=== PATIENT | female | born 1985 | race African-American/Black ===

== ENCOUNTER 2016-06-08 11:55 | Emergency (ER) | payer MEDICAID ==
[~2016-06-08] VITALS: Ht 167.6 cm; Wt 81.6 kg
--- NOTE | 2016-06-08 12:43 | Emergency Room Report ---
History of Present Illness General Chief Complaint: General Complaint Source: Patient Present Illness HPI 31-year-old female presents emergency department complaining of 9/10 in severity sharp right-sided adnexal pain intermittently since last night. Patient is 30 weeks she has with previous normal vaginal deliveries without complications. Pt. also reports subjective decreased kick count. Denies cramping or contractions She denies vaginal bleeding or discharge patient reports mild nausea patient states that she had appendectomy several years ago. Pt. states initially pain was in the right adnexal area, and it came and went approximately 4 times. pt. states after that is when she noted the decreased movement from the baby. Denies fevers or chills. Denies hematuria, or dysuria . Denies CP, Palpitations, LOC, AMS, dizziness, Changes in Vision, Sensation, paresthesias, or a sudden severe headache. Allergies: Coded Allergies: No Known Allergies (Unverified , 06/08/16) Patient History Past Medical History: see triage record Past Surgical History: unable to obtain Pertinent Family History: none Now: Yes Immunizations: UTD Reviewed Nursing Documentation: PMH: Agreed, PSxH: Agreed Nursing Documentation-PMH Past Medical History: No Stated History Review of Systems All Other Systems: negative except mentioned in HPI Physical Exam Vital Signs Date Time Temp Pulse Resp B/P Pulse Ox O2 Delivery O2 Flow Rate FiO2 06/08/16 12:10 98.1 78 16 120/ 98 Room Air Sp02 EP Interpretation: reviewed, normal General Appearance: no apparent distress, alert, GCS 15, non-toxic Head: normocephalic, atraumatic Eyes: bilateral eye PERRL, bilateral eye normal inspection ENT: hearing grossly normal, normal pharynx, no angioedema, normal voice Neck: full range of motion, supple/symm/no masses Respiratory: chest non-tender, lungs clear, normal breath sounds, speaking full sentences Cardiovascular #1: regular rate, rhythm, no edema Gastrointestinal: normal bowel sounds, non tender, no guarding, no rebound, distended - distended- pt. 30wks , other - pt. currently does not have pain. Rectal: deferred Genitourinary: normal inspection, no CVA tenderness, adnexa normal Musculoskeletal: back normal, gait/station normal, normal range of motion, non- tender, no calf tenderness Neurologic: alert, oriented x3, responsive, motor strength/tone normal, sensory intact, speech normal Psychiatric: judgement/insight normal, memory normal, mood/affect normal, no suicidal/homicidal ideation Skin: normal color, no rash, warm/dry, well hydrated Lymphatic: no adenopathy Medical Decision Making PA Attestation Dr. Darnell is my supervising Physician whom patient management has been discussed with. Diagnostic Impression: Primary Impression: Abdominal pain during in third trimester Additional Impression: Adnexal pain ER Course 31-year-old female presents emergency department complaining of 9/10 in severity sharp right-sided adnexal pain intermittently since last night. Patient is 30 weeks she has with previous normal vaginal deliveries without complications. Pt. also reports subjective decreased kick count. denies cramping or contractions. She denies vaginal bleeding or discharge patient reports mild nausea patient states that she had appendectomy several years ago. Denies fevers or chills. Denies hematuria, or dysuria . Ddx considered but are not limited to: Fibroid, ovarian cyst, appendicitis, demise, Vital signs: are WNL, pt. is afebrile H&PE are most consistent with: Adnexal pain during with perceived decreased movement. - d/w pt that stress testing is indicated. ORDERS: -CBC: unremarkable -CMP: unremarkable -Lipase: WNL - UA : pending- pt was unable to provide urine. -Urine hcg- Positive -serum Hcg Quant: 9357 - Blood/RH type and screen- see attached labs ( O POSITIVE) -Pelvic US complete- normal intrauterine estimated at 30 weeks and 4 day weeks gestation with a HR of 147BPM. ED INTERVENTIONS: None at this time. DISPOSITION: pt. requires higher level of care for monitoring, pt. declines transport to facility with L & D. pt. is requesting to drive herself. d /w pt. that this would require her to sign agains medical advise. - Pt. Requests AMA To drive herself to appropriate facility with L&D, pt. was advised [facility] is the closest facility and is recommended. - At this time the patient is requesting to leave AGAINST MEDICAL ADVICE. I believe that this patient has the capacity to make decisions on Her own. I discussed with the patient the risks of leaving AMA. Some of these risks include delay in diagnosis and treatment, as well as worsening of symptoms, organ damage, and permanent disability or even to her or her unborn child.. After discussing these risks with the patient. She continues to express her want to leave AGAINST MEDICAL ADVICE. I encouraged the patient to return at any time, and that she will be welcome here in the emergency department to continue medical management. Labs Test 06/08/16 13:45 White Blood Count 10.5 K/UL (4.8-10.8) Red Blood Count 3.64 M/UL (4.20-5.40) Hemoglobin 11.4 G/DL (12.0-16.0) Hematocrit 35.5 % (37.0-47.0) Mean Corpuscular Volume 98 FL (80-99) Mean Corpuscular Hemoglobin 31.2 PG (27.0-31.0) Mean Corpuscular Hemoglobin Concent 32.0 G/DL (32.0-36.0) Red Cell Distribution Width 13.8 % (11.6-14.8) Platelet Count 167 K/UL (150-450) Mean Platelet Volume 9.8 FL (6.5-10.1) Neutrophils (%) (Auto) 74.4 % (45.0-75.0) Lymphocytes (%) (Auto) 18.3 % (20.0-45.0) Monocytes (%) (Auto) 6.0 % (1.0-10.0) Eosinophils (%) (Auto) 0.5 % (0.0-3.0) Basophils (%) (Auto) 0.8 % (0.0-2.0) Sodium Level 136 mEQ/L (135-145) Potassium Level 3.7 mEQ/L (3.4-4.9) Chloride Level 97 mEQ/L (98-107) Carbon Dioxide Level 24 mEQ/L (20-30) Anion Gap 15 (5-15) Blood Urea Nitrogen 5 mg/dL (7-23) Creatinine 0.5 mg/dL (0.5-0.9) Estimat Glomerular Filtration Rate > 60 mL/min (>60) Glucose Level 80 mg/dL (74-106) Calcium Level 8.6 mg/dL (8.6-10.2) Total Bilirubin 0.2 mg/dL (0.0-1.2) Aspartate Amino Transf (AST/SGOT) 15 U/L (5-40) Alanine Aminotransferase (ALT/SGPT) 10 U/L (3-33) Alkaline Phosphatase 74 U/L (35-104) Total Protein 6.6 g/dL (6.6-8.7) Albumin 3.5 g/dL (3.5-5.2) Globulin 3.1 g/dL Albumin/Globulin Ratio 1.1 (1.0-2.7) Lipase 19 U/L (< 60) Human Chorionic Gonadotropin, Quant 9357 mIU/mL Last Vital Signs Date Time Temp Pulse Resp B/P Pulse Ox O2 Delivery O2 Flow Rate FiO2 06/08/16 12:10 98.1 78 16 120/ 98 Room Air Disposition: AGAINST MEDICAL ADVICE Condition: Stable Referrals: NON PHYSICIAN (PCP) Patient Instructions: Abdominal Pain During , [id number] Additional Instructions: Take any previously medications as directed. Follow up with Labor and Delivery immediately after leaving this ED. Return sooner to ED if new symptoms occur, or current symptoms become worse, Or if you decide you would like us to facilitate transfer to L&D for higher level of care. - Please note that this Emergency Department Report was dictated using [employer] technology software, occasionally this can lead to erroneous entry secondary to interpretation by the dictation equipment. Kadi Evangelista Jun 08, 2016 12:42
[2016-06-08 13:58] LABS: BASOPHILS % (AUTO) 0.8 % (0.0-2.0); EOSINOPHILS % (AUTO) 0.5 % (0.0-3.0); LYMPHOCYTES % (AUTO) 18.3 % (20.0-45.0); MEAN CORPUSCULAR HEMOGLOBIN 31.2 PG (27.0-31.0); MEAN CORPUSCULAR VOLUME 98 FL (80-99); MEAN PLATELET VOLUME 9.8 FL (6.5-10.1); NEUTROPHILS % (AUTO) 74.4 % (45.0-75.0); PLATELET COUNT 167 K/UL (150-450); RED BLOOD COUNT 3.64 M/UL (4.20-5.40); RED CELL DISTRIBUTION WIDTH 13.8 % (11.6-14.8); WHITE BLOOD COUNT 10.5 K/UL (4.8-10.8)
[2016-06-08 14:14] LABS: ALANINE AMINOTRANSFERASE 10 U/L (3-33); ALBUMIN/GLOBULIN RATIO 1.1 (1.0-2.7); ANION GAP 15 (5-15); ASPARTATE AMINO TRANSFERASE 15 U/L (5-40); CALCIUM 8.6 mg/dL (8.6-10.2); CARBON DIOXIDE 24 mEQ/L (20-30); CHLORIDE 97 mEQ/L (98-107); CREATININE 0.5 mg/dL (0.5-0.9); GLOMERULAR FILTRATION RATE > 60 mL/min (>60); HEMOLYSIS 3; LIPASE 19 U/L (< 60); POTASSIUM 3.7 mEQ/L (3.4-4.9); SODIUM 136 mEQ/L (135-145); TOTAL PROTEIN 6.6 g/dL (6.6-8.7)
--- NOTE | 2016-06-08 15:00 | Diagnostic Imaging Report ---
Indication: PAIN pelvic pain x1 day, 30 weeks Technique: Transabdominal images Comparison: None Findings: There is a single live intrauterine . Cephalic presentation. Anterior fundal placenta, clears the internal cervical os. Normal amniotic fluid volume. Positive heart activity, heart rate 135 beats per minute. Closed cervix, endocervical canal measures 4.6 cm in length measurements as follows: Biparietal 78 mm, 31 weeks 2 days; head circumference 276 mm, 30 weeks one day; abdominal circumference 260 mm, 30 weeks one day; femur length 58 mm, 30 weeks 3 days. Estimated gestational age by average ultrasound measurements is 30 weeks 4 days. Estimated date of delivery is 08/13/2016. Estimated gestational age by dates is 31 weeks 4 days Limited assessment of anatomy demonstrates normal bladder, four-chamber heart, cord insertion, three-vessel cord, spine, kidneys, stomach Impression: 30 week 4 day, by average of ultrasound measurements, single live intrauterine . No unusual features
[2016-06-08 17:41] VITALS: BP 114/67
== END 2016-06-08 14:35 | disposition left against medical advice (07) ==
LOC: EMR 12:25
DX: O26.93 Pregnancy related conditions, unspecified, third trimester (principal); Z3A.30 30 weeks gestation of pregnancy; R10.9 Unspecified abdominal pain; R10.2 Pelvic and perineal pain
CPT/HCPCS: 36415; 76811; 80053; 83690; 84702; 85025; 86850; 86900; 86901; 99284